=== PATIENT | male | born 1935 | race Caucasian/White ===

== ENCOUNTER → 2018-08-06 | Outpatient (CLI) | payer MEDICARE ==
[~2018-08-06] MED LIST: ASCRIPTIN1 TAB PO; COUMADIN6 MG PO; HYZAAR 50/12.5M1 TAB PO; SINGULAIR10 MG PO
== END ==
LOC: WOUNDCARE 00:50
DX: L97.821 Non-pressure chronic ulcer of other part of left lower leg limited to breakdown of skin (principal); G62.9 Polyneuropathy, unspecified; M19.90 Unspecified osteoarthritis, unspecified site; I10 Essential (primary) hypertension; I73.9 Peripheral vascular disease, unspecified; Z96.653 Presence of artificial knee joint, bilateral; Z95.810 Presence of automatic (implantable) cardiac defibrillator

== ENCOUNTER → 2018-08-15 | Outpatient (CLI) | payer MEDICARE | END | disposition home or self-care (01) | LOC: WOUNDCARE 01:29 | DX: S80.812D Abrasion, left lower leg, subsequent encounter (principal); I11.9 Hypertensive heart disease without heart failure; G62.9 Polyneuropathy, unspecified; M19.90 Unspecified osteoarthritis, unspecified site; Z96.653 Presence of artificial knee joint, bilateral; Z95.810 Presence of automatic (implantable) cardiac defibrillator; Z98.49 Cataract extraction status, unspecified eye; X58.XXXD Exposure to other specified factors, subsequent encounter ==

== ENCOUNTER → 2018-08-22 | Outpatient (CLI) | payer MEDICARE | END | disposition home or self-care (01) | LOC: WOUNDCARE 01:24 | DX: S80.812D Abrasion, left lower leg, subsequent encounter (principal); I10 Essential (primary) hypertension; M19.90 Unspecified osteoarthritis, unspecified site; G60.9 Hereditary and idiopathic neuropathy, unspecified; Z96.653 Presence of artificial knee joint, bilateral; Z98.49 Cataract extraction status, unspecified eye; X58.XXXD Exposure to other specified factors, subsequent encounter ==

== ENCOUNTER 2021-12-15 03:19 | Emergency (ER) | payer MEDICARE ==
[~2021-12-15] VITALS: Ht 185.4 cm; Wt 126.8 kg
[2021-12-15 03:39] LABS: BASO % 0.2 % (0.0-1.0); EOS % 0.1 % (1.0-4.0); HEMATOCRIT 33.9 % (42.0-52.0); LYMPH # 0.3 10*3/uL (1.3-4.4); LYMPH % 3.6 % (27.0-41.0); MEAN CELL VOLUME 101.8 fl (80.0-94.0); MEAN CORPUSCULAR HGB 34.5 pg (27.0-31.0); MEAN CORPUSCULAR HGB CONC 33.9 g/dl (33.0-37.0); MEAN PLATELET VOLUME 9.8 fl (9.6-12.3); MONO # 0.7 10*3/uL (0.1-1.0); MONO % 7.7 % (3.0-9.0); NEUT # 7.7 10*3/uL (2.3-7.9); NEUT % 87.9 % (47.0-73.0); PLATELET COUNT AUTOMATED 192 10*3/uL (130-400); RED BLOOD COUNT 3.33 10*6/uL (4.50-5.90); WHITE BLOOD COUNT 8.8 10*3/uL (4.8-10.8)
[2021-12-15 03:54] LABS: ALKALINE PHOSPHATASE 97 U/L (45-117); BUN 24 mg/dl (7-24); CHLORIDE 108 mmol/L (98-107); CPK 243 U/L (39-308); CREATININE 0.95 mg/dL (0.70-1.30); POTASSIUM 4.4 mmol/L (3.5-5.1); SGOT/AST 23 IU/L (3-35); SGPT/ALT 22 U/L (12-78); SODIUM 140 mmol/L (136-145); TOTAL PROTEIN 7.1 gm/dL (6.4-8.2)
[2021-12-15 06:02] LABS: BILIRUBIN 1+ (Negative); BLOOD Negative (Negative); CLARITY Clear (Clear); COLOR Dark Yellow (Yellow); GLUCOSE Negative (Negative); KETONE Trace (Negative); LEUKO ESTERASE Trace (Negative); NITRITE Negative (Negative); SPECIFIC GRAVITY >= 1.030 (1.001-1.030)
[2021-12-15 06:13] LABS: BACTERIA 1+; CALCIUM OXALATE CRYSTALS 2+; MUCOUS 1+
== END 2021-12-15 06:34 | disposition home or self-care (01) ==
LOC: ED 03:19
PROVIDERS: Internal Medicine
DX: T24.101A Burn of first degree of unspecified site of right lower limb, except ankle and foot, initial encounter (principal); R53.1 Weakness; Z79.899 Other long term (current) drug therapy; X08.8XXA Exposure to other specified smoke, fire and flames, initial encounter; Y93.89 Activity, other specified; Y92.89 Other specified places as the place of occurrence of the external cause; Y99.8 Other external cause status

== ENCOUNTER 2022-04-03 17:48 | Inpatient (IN) | payer MEDICARE ==
[~2022-04-03] VITALS: Ht 185.4 cm; Wt 122.1 kg
[2022-04-03 17:50] VITALS: BP 113/77
[2022-04-03 18:45] LABS: BASO % 0.1 % (0.0-1.0); HEMATOCRIT 36.6 % (42.0-52.0); LYMPH # 0.6 10*3/uL (1.3-4.4); LYMPH % 4.2 % (27.0-41.0); MEAN CORPUSCULAR HGB 34.7 pg (27.0-31.0); MEAN CORPUSCULAR HGB CONC 33.3 g/dl (33.0-37.0); MEAN PLATELET VOLUME 11.5 fl (9.6-12.3); MONO # 1.4 10*3/uL (0.1-1.0); MONO % 9.6 % (3.0-9.0); NEUT # 12.6 10*3/uL (2.3-7.9); NEUT % 85.6 % (47.0-73.0); PLATELET COUNT AUTOMATED 132 10*3/uL (130-400); RED BLOOD COUNT 3.52 10*6/uL (4.50-5.90); RED CELL DISTRI WIDTH 14.8 % (0-14.5); WHITE BLOOD COUNT 14.7 10*3/uL (4.8-10.8)
[2022-04-03 18:56] LABS: ACT PARTIAL THROMBO TIME 47.3 SECONDS (20.0-32.1); INTERNATIONAL NORM RATIO 1.7 (2.0-3.5)
[2022-04-03 19:00] LABS: ALKALINE PHOSPHATASE 74 U/L (46-116); BUN 29 mg/dl (9-23); CHLORIDE 104 mmol/L (98-107); POTASSIUM 4.5 mmol/L (3.4-5.1); SGPT/ALT 45 U/L (10-49); TOTAL PROTEIN 6.4 gm/dL (6.0-8.0)
[2022-04-03 19:43] VITALS: BP 102/72
[2022-04-03 21:24] LABS: MYOGLOBIN 2925.1 ng/ml (16-116)
[2022-04-03 21:27] LABS: BILIRUBIN 2+ (Negative); BLOOD Negative (Negative); CLARITY Clear (Clear); COLOR Orange (Yellow); GLUCOSE Negative (Negative); KETONE 1+ (Negative); LEUKO ESTERASE Trace (Negative); NITRITE Positive (Negative); PH 5.5 (4.5-8.0); SPECIFIC GRAVITY >= 1.030 (1.001-1.030)
[2022-04-03 22:06] LABS: BACTERIA 1+
[2022-04-03 23:37] VITALS: BP 99/54
[2022-04-04 01:29] VITALS: BP 117/66
[2022-04-04 02:50] VITALS: BP 134/74
[2022-04-04 03:30] LABS: BASO % 0.1 % (0.0-1.0); LYMPH # 0.9 10*3/uL (1.3-4.4); MEAN CELL VOLUME 103.2 fl (80.0-94.0); MEAN CORPUSCULAR HGB 34.4 pg (27.0-31.0); MEAN CORPUSCULAR HGB CONC 33.3 g/dl (33.0-37.0); MEAN PLATELET VOLUME 11.3 fl (9.6-12.3); MONO # 1.4 10*3/uL (0.1-1.0); MONO % 9.5 % (3.0-9.0); NEUT # 12.5 10*3/uL (2.3-7.9); PLATELET COUNT AUTOMATED 145 10*3/uL (130-400); RED BLOOD COUNT 3.49 10*6/uL (4.50-5.90); RED CELL DISTRI WIDTH 15.1 % (0-14.5); WHITE BLOOD COUNT 14.9 10*3/uL (4.8-10.8)
[2022-04-04 03:41] LABS: ACT PARTIAL THROMBO TIME 46.3 SECONDS (20.0-32.1); INTERNATIONAL NORM RATIO 1.6 (2.0-3.5)
[2022-04-04 03:47] LABS: ALKALINE PHOSPHATASE 70 U/L (46-116); BUN 29 mg/dl (9-23); CHLORIDE 105 mmol/L (98-107); CHOLESTEROL 95 mg/dL (<200); LDL CHOLESTEROL 42 mg/dL (9-159); POTASSIUM 4.3 mmol/L (3.4-5.1); SGPT/ALT 46 U/L (10-49); THYROID STIM HORMONE (HS) 3.016 uIU/ml (0.550-4.780); TRIGLYCERIDES 69 mg/dl (<150)
[2022-04-04 06:58] LABS: VITAMIN D, 25-HYDROXY 49.5 ng/mL (30-100)
[2022-04-04 07:40] VITALS: BP 116/72
[2022-04-04] MEDS ORDERED: EPLERENONE25 MG PO (08:58)
[2022-04-04] MEDS ORDERED: ELIQUIS5 M1 PO (09:03)
[2022-04-04] MEDS ORDERED: HYDROXYCHLOROQ200 M1 PO (09:04)
[2022-04-04] MEDS ORDERED: SANTYL30 GM T (09:06)
[2022-04-04] MEDS ORDERED: TOLTERODINE TART4 M1 PO (09:07)
[2022-04-04] MEDS ORDERED: NATURE'S BLEND F1 MG PO (09:07)
[2022-04-04] MEDS ORDERED: MONTELUKAST SOD10 MG PO (09:08)
[2022-04-04] MEDS ORDERED: DIGOXIN125 MCG PO (09:09)
[2022-04-04] MEDS ORDERED: CARVEDILOL6.25 MG PO (10:52)
[2022-04-04] MEDS ORDERED: NEURONTIN300 MG PO (10:55)
[2022-04-04 12:00] VITALS: BP 112/67
[2022-04-04 16:00] VITALS: BP 122/85
[2022-04-04 20:00] VITALS: BP 118/72
[2022-04-05] VITALS: BP 131/76
[2022-04-05 05:06] LABS: HBSAG Negative (Negative); HEP B CORE AB, IGM Negative (Negative); HEPATITIS C ANTIBODY <0.1 (0.0-0.9)
[2022-04-05 07:34] LABS: ALKALINE PHOSPHATASE 67 U/L (46-116); CHLORIDE 108 mmol/L (98-107); POTASSIUM 4.1 mmol/L (3.4-5.1); SGPT/ALT 52 U/L (10-49); TOTAL PROTEIN 5.9 gm/dL (6.0-8.0)
[2022-04-05 07:46] LABS: BUN 18 mg/dl (9-23)
[2022-04-05 08:00] VITALS: BP 102/74; BP 116/70
[2022-04-05 08:52] LABS: BASO % 0.1 % (0.0-1.0); EOS # 0.1 10*3/uL (0.0-0.4); EOS % 0.5 % (1.0-4.0); HEMATOCRIT 36.2 % (42.0-52.0); LYMPH # 0.8 10*3/uL (1.3-4.4); MEAN CELL VOLUME 104.3 fl (80.0-94.0); MEAN CORPUSCULAR HGB 34.6 pg (27.0-31.0); MEAN CORPUSCULAR HGB CONC 33.1 g/dl (33.0-37.0); MONO # 1.1 10*3/uL (0.1-1.0); MONO % 12.2 % (3.0-9.0); NEUT # 7.2 10*3/uL (2.3-7.9); PLATELET COUNT AUTOMATED 140 10*3/uL (130-400); RED BLOOD COUNT 3.47 10*6/uL (4.50-5.90); RED CELL DISTRI WIDTH 15.1 % (0-14.5); WHITE BLOOD COUNT 9.2 10*3/uL (4.8-10.8)
[2022-04-05 12:00] VITALS: BP 112/66
[2022-04-05 16:00] VITALS: BP 110/55
[2022-04-05 20:00] VITALS: BP 121/80
[2022-04-06] VITALS: BP 128/79
[2022-04-06 08:00] VITALS: BP 136/77
[2022-04-06 12:00] VITALS: BP 107/68
[2022-04-06] MEDS ORDERED: CEPHALEXIN500 M1 PO (14:41)
[2022-04-06 16:00] VITALS: BP 119/67
[2022-04-06 20:00] VITALS: BP 120/82
[2022-04-07] VITALS: BP 113/75
[2022-04-07 08:00] VITALS: BP 114/85
[2022-04-07 12:00] VITALS: BP 117/71
[2022-04-07 16:00] VITALS: BP 114/83
[2022-04-07 20:00] VITALS: BP 125/88
[2022-04-08] VITALS: BP 125/82
[2022-04-08 06:44] LABS: BASO % 0.2 % (0.0-1.0); EOS # 0.1 10*3/uL (0.0-0.4); EOS % 2.4 % (1.0-4.0); HEMATOCRIT 32.7 % (42.0-52.0); LYMPH # 0.8 10*3/uL (1.3-4.4); LYMPH % 15.2 % (27.0-41.0); MEAN CELL VOLUME 104.5 fl (80.0-94.0); MEAN CORPUSCULAR HGB 34.8 pg (27.0-31.0); MEAN CORPUSCULAR HGB CONC 33.3 g/dl (33.0-37.0); MEAN PLATELET VOLUME 10.8 fl (9.6-12.3); MONO # 0.7 10*3/uL (0.1-1.0); MONO % 12.4 % (3.0-9.0); NEUT # 3.8 10*3/uL (2.3-7.9); NEUT % 69.6 % (47.0-73.0); PLATELET COUNT AUTOMATED 130 10*3/uL (130-400); RED BLOOD COUNT 3.13 10*6/uL (4.50-5.90); RED CELL DISTRI WIDTH 15.4 % (0-14.5); WHITE BLOOD COUNT 5.5 10*3/uL (4.8-10.8)
[2022-04-08 08:00] VITALS: BP 133/80
[2022-04-08 09:23] LABS: ALKALINE PHOSPHATASE 57 U/L (46-116); BUN 13 mg/dl (9-23); CHLORIDE 108 mmol/L (98-107); SGPT/ALT 39 U/L (10-49); TOTAL PROTEIN 5.5 gm/dL (6.0-8.0)
[2022-04-08 12:00] VITALS: BP 133/70
[2022-04-08] MEDS ORDERED: METHOTREXATE S2.5 M1 PO (13:36)
[2022-04-08 16:00] VITALS: BP 136/72
[2022-04-08 20:00] VITALS: BP 120/82
[2022-04-09] VITALS: BP 121/80
[2022-04-09 07:58] VITALS: BP 124/78
[2022-04-09 12:00] VITALS: BP 121/71
[2022-04-09 16:00] VITALS: BP 126/71
[2022-04-09 20:00] VITALS: BP 119/72
[2022-04-10] VITALS: BP 119/78
[2022-04-10 06:34] LABS: BASO % 0.3 % (0.0-1.0); EOS # 0.1 10*3/uL (0.0-0.4); EOS % 2.1 % (1.0-4.0); HEMATOCRIT 34.6 % (42.0-52.0); LYMPH # 0.9 10*3/uL (1.3-4.4); MEAN CELL VOLUME 104.5 fl (80.0-94.0); MEAN CORPUSCULAR HGB 34.7 pg (27.0-31.0); MEAN CORPUSCULAR HGB CONC 33.2 g/dl (33.0-37.0); MEAN PLATELET VOLUME 10.7 fl (9.6-12.3); MONO # 0.7 10*3/uL (0.1-1.0); MONO % 11.9 % (3.0-9.0); NEUT # 4.3 10*3/uL (2.3-7.9); NEUT % 70.2 % (47.0-73.0); PLATELET COUNT AUTOMATED 129 10*3/uL (130-400); RED BLOOD COUNT 3.31 10*6/uL (4.50-5.90); RED CELL DISTRI WIDTH 15.3 % (0-14.5); WHITE BLOOD COUNT 6.1 10*3/uL (4.8-10.8)
[2022-04-10 06:55] LABS: BUN 11 mg/dl (9-23); CHLORIDE 105 mmol/L (98-107); POTASSIUM 4.1 mmol/L (3.4-5.1)
[2022-04-10 08:45] VITALS: BP 121/84
[2022-04-10 12:17] VITALS: BP 113/73
== END 2022-04-10 15:31 | DRG 871 ==
LOC: ED 17:48 → 5E 04-04 01:43 → EDHOLD 04-04 01:43 → 5E 04-04 02:09
PROVIDERS: Emergency Medicine; Student in an Organized Health Care Education/Training Program; ADMIT Internal Medicine; ATTEND Internal Medicine
DX: A41.9 Sepsis, unspecified organism (principal); G93.41 Metabolic encephalopathy; I21.4 Non-ST elevation (NSTEMI) myocardial infarction; M62.82 Rhabdomyolysis; E87.20 Acidosis, unspecified; L03.90 Cellulitis, unspecified; I48.21 Permanent atrial fibrillation; S05.8X2A Other injuries of left eye and orbit, initial encounter; N39.0 Urinary tract infection, site not specified; R65.20 Severe sepsis without septic shock; E80.6 Other disorders of bilirubin metabolism; G62.9 Polyneuropathy, unspecified; M81.0 Age-related osteoporosis without current pathological fracture; I50.9 Heart failure, unspecified; R29.6 Repeated falls; I45.10 Unspecified right bundle-branch block; I44.60 Unspecified fascicular block; I08.1 Rheumatic disorders of both mitral and tricuspid valves; I11.0 Hypertensive heart disease with heart failure; R74.01 Elevation of levels of liver transaminase levels; D53.9 Nutritional anemia, unspecified; R73.9 Hyperglycemia, unspecified; G47.30 Sleep apnea, unspecified; G57.93 Unspecified mononeuropathy of bilateral lower limbs; M06.9 Rheumatoid arthritis, unspecified; Z96.653 Presence of artificial knee joint, bilateral; S81.819A Laceration without foreign body, unspecified lower leg, initial encounter; X58.XXXA Exposure to other specified factors, initial encounter; Z86.73 Personal history of transient ischemic attack (TIA), and cerebral infarction without residual deficits; Y93.89 Activity, other specified; Y92.89 Other specified places as the place of occurrence of the external cause; Z90.49 Acquired absence of other specified parts of digestive tract; Y99.8 Other external cause status; Z82.49 Family history of ischemic heart disease and other diseases of the circulatory system; Z88.6 Allergy status to analgesic agent; Z79.01 Long term (current) use of anticoagulants; Z79.899 Other long term (current) drug therapy

== ENCOUNTER 2022-06-16 21:23 | Emergency (ER) | payer MEDICARE ==
[~2022-06-16 21:23] MED LIST changes: +CARVEDILOL6.25 MG PO; +CEFDINIR300 MG PO; +CEPHALEXIN500 M1 PO; +DIGOXIN125 MCG PO; +DOXYCYCLINE MO100 MG PO; +ELIQUIS5 M1 PO; +EPLERENONE25 MG PO; +GABAPENTIN600 MG PO; +HYDROCODONE-AC1 EAC1 PO; +HYDROCODONE-AC1 EACH PO; +HYDROXYCHLOROQ200 M1 PO; +LASIX40 MG PO; +LIDOCAINE PAIN1 EACH T; +METHOTREXATE S2.5 M1 PO; +MONTELUKAST SOD10 MG PO; +NATURE'S BLEND F1 MG PO; +NEURONTIN300 MG PO; +NEURONTIN600 MG PO; +PANTOPRAZOLE SO40 MG PO; +PROTONIX40 MG PO; +SANTYL30 GM T; +TOLTERODINE TART4 M1 PO; +TREXALL15 MG PO; +XARE15TA PO
[2022-06-16] MEDS ORDERED: BUMETANIDE1 MG PO (21:31)
[2022-06-16] MEDS ORDERED: Vibra-Tab100 MG PO (21:32)
[2022-06-16] MEDS ORDERED: POTASSIUM CHLO20 ME3 PO (21:33)
[2022-06-16 22:04] LABS: BILIRUBIN Negative (Negative); BLOOD Negative (Negative); CLARITY Clear (Clear); COLOR Yellow (Yellow); GLUCOSE Negative (Negative); KETONE Negative (Negative); LEUKO ESTERASE Negative (Negative); NITRITE Negative (Negative); SPECIFIC GRAVITY 1.015 (1.001-1.030)
[2022-06-16 22:12] LABS: BACTERIA TRACE
[2022-06-16 22:13] LABS: BASO % 0.1 % (0.0-1.0); HEMATOCRIT 25.1 % (42.0-52.0); LYMPH # 0.5 10*3/uL (1.3-4.4); LYMPH % 4.1 % (27.0-41.0); MEAN CELL VOLUME 89.3 fl (80.0-94.0); MEAN CORPUSCULAR HGB 29.2 pg (27.0-31.0); MEAN CORPUSCULAR HGB CONC 32.7 g/dl (33.0-37.0); MEAN PLATELET VOLUME 10.9 fl (9.6-12.3); MONO # 0.8 10*3/uL (0.1-1.0); MONO % 7.5 % (3.0-9.0); NEUT # 9.8 10*3/uL (2.3-7.9); NEUT % 87.7 % (47.0-73.0); PLATELET COUNT AUTOMATED 194 10*3/uL (130-400); RED BLOOD COUNT 2.81 10*6/uL (4.50-5.90); RED CELL DISTRI WIDTH 17.2 % (0-14.5); WHITE BLOOD COUNT 11.1 10*3/uL (4.8-10.8)
[2022-06-16 22:27] LABS: ALKALINE PHOSPHATASE 104 U/L (46-116); BUN 20 mg/dl (9-23); CHLORIDE 99 mmol/L (98-107); SGPT/ALT 12 U/L (10-49); TOTAL PROTEIN 5.1 gm/dL (6.0-8.0)
== END 2022-06-17 00:46 ==
LOC: ED 21:23
PROVIDERS: Internal Medicine
DX: B34.9 Viral infection, unspecified (principal); R79.82 Elevated C-reactive protein (CRP); M25.511 Pain in right shoulder; E87.1 Hypo-osmolality and hyponatremia; D64.9 Anemia, unspecified; E43 Unspecified severe protein-calorie malnutrition; Z68.1 Body mass index [BMI] 19.9 or less, adult; I10 Essential (primary) hypertension; I50.9 Heart failure, unspecified; M19.90 Unspecified osteoarthritis, unspecified site; G62.9 Polyneuropathy, unspecified; Z88.6 Allergy status to analgesic agent; Z90.49 Acquired absence of other specified parts of digestive tract; Z96.653 Presence of artificial knee joint, bilateral; Z20.822 Contact with and (suspected) exposure to COVID-19

== ENCOUNTER 2022-12-01 11:09 | Emergency (ER) | payer MEDICARE ==
[~2022-12-01] VITALS: Ht 185.4 cm; Wt 133.4 kg
[~2022-12-01 11:09] MED LIST changes: +ACETAMINOPHEN325 M2 PO; +BUMETANIDE1 MG PO; +POTASSIUM CHLO20 ME3 PO; +TORSEMIDE20 MG PO; +TRAMADOL HCL50 MG PO; +VANC1PIG IV; +Vibra-Tab100 MG PO; +XARE20MG PO
[2022-12-01 11:41] LABS: BASO % 0.8 % (0.0-1.0); EOS # 0.2 10*3/uL (0.0-0.4); EOS % 3.2 % (1.0-4.0); HEMATOCRIT 26.6 % (42.0-52.0); LYMPH # 0.9 10*3/uL (1.3-4.4); LYMPH % 19.1 % (27.0-41.0); MEAN CORPUSCULAR HGB CONC 32.3 g/dl (33.0-37.0); MEAN PLATELET VOLUME 9.7 fl (9.6-12.3); MONO # 0.7 10*3/uL (0.1-1.0); MONO % 15.5 % (3.0-9.0); NEUT # 2.9 10*3/uL (2.3-7.9); NEUT % 61.2 % (47.0-73.0); PLATELET COUNT AUTOMATED 156 10*3/uL (130-400); RED BLOOD COUNT 2.77 10*6/uL (4.50-5.90); RED CELL DISTRI WIDTH 17.9 % (0-14.5); WHITE BLOOD COUNT 4.8 10*3/uL (4.8-10.8)
[2022-12-01 11:53] LABS: ACT PARTIAL THROMBO TIME 39.7 SECONDS (20.0-32.1); INTERNATIONAL NORM RATIO 1.4 (2.0-3.5)
[2022-12-01 12:30] LABS: ALKALINE PHOSPHATASE 82 U/L (46-116); BUN 17 mg/dl (9-23); CHLORIDE 104 mmol/L (98-107); TOTAL PROTEIN 6.2 gm/dL (6.0-8.0)
[2022-12-01 12:31] LABS: SGPT/ALT < 7 U/L (10-49)
[2022-12-01] MEDS ORDERED: LASIX80 MG PO (13:17)
== END 2022-12-01 14:07 | disposition home or self-care (01) ==
LOC: ED 11:09
PROVIDERS: Emergency Medicine
DX: I50.9 Heart failure, unspecified (principal); N43.3 Hydrocele, unspecified; N50.89 Other specified disorders of the male genital organs; I11.0 Hypertensive heart disease with heart failure; M19.90 Unspecified osteoarthritis, unspecified site; Z88.6 Allergy status to analgesic agent; Z88.8 Allergy status to other drugs, medicaments and biological substances; Z90.49 Acquired absence of other specified parts of digestive tract; Z96.653 Presence of artificial knee joint, bilateral

== ENCOUNTER 2022-12-07 21:36 | Emergency (ER) | payer MEDICARE ==
[~2022-12-07] VITALS: Ht 177.8 cm; Wt 132.0 kg
[~2022-12-07 21:36] MED LIST changes: +LASIX80 MG PO
[2022-12-07 22:03] LABS: BASO % 0.6 % (0.0-1.0); EOS # 0.1 10*3/uL (0.0-0.4); EOS % 2.4 % (1.0-4.0); HEMATOCRIT 27.4 % (42.0-52.0); LYMPH # 0.9 10*3/uL (1.3-4.4); LYMPH % 18.3 % (27.0-41.0); MEAN CELL VOLUME 92.6 fl (80.0-94.0); MEAN CORPUSCULAR HGB 29.7 pg (27.0-31.0); MEAN CORPUSCULAR HGB CONC 32.1 g/dl (33.0-37.0); MEAN PLATELET VOLUME 10.1 fl (9.6-12.3); MONO # 0.7 10*3/uL (0.1-1.0); MONO % 13.5 % (3.0-9.0); NEUT # 3.2 10*3/uL (2.3-7.9); NEUT % 63.8 % (47.0-73.0); PLATELET COUNT AUTOMATED 165 10*3/uL (130-400); RED BLOOD COUNT 2.96 10*6/uL (4.50-5.90); RED CELL DISTRI WIDTH 17.1 % (0-14.5)
[2022-12-07 22:23] LABS: ALKALINE PHOSPHATASE 82 U/L (46-116); BUN 18 mg/dl (9-23); CHLORIDE 103 mmol/L (98-107); POTASSIUM 3.7 mmol/L (3.4-5.1); TOTAL PROTEIN 6.3 gm/dL (6.0-8.0)
[2022-12-07 22:25] LABS: SGPT/ALT < 7 U/L (10-49)
[2022-12-07 23:41] LABS: BILIRUBIN Negative (Negative); BLOOD 3+ (Negative); CLARITY Clear (Clear); COLOR Yellow (Yellow); GLUCOSE Negative (Negative); KETONE Negative (Negative); LEUKO ESTERASE 1+ (Negative); NITRITE Negative (Negative); PH 5.5 (4.5-8.0)
[2022-12-07 23:51] LABS: BACTERIA TRACE; RBC 41-50 rbc/hpf (0-2); WBC 16-20 wbc/hpf (0-5)
== END 2022-12-08 02:07 ==
LOC: ED 21:36
PROVIDERS: Internal Medicine
DX: N50.89 Other specified disorders of the male genital organs (principal); D64.9 Anemia, unspecified; E43 Unspecified severe protein-calorie malnutrition; I10 Essential (primary) hypertension; I50.9 Heart failure, unspecified; M19.90 Unspecified osteoarthritis, unspecified site; Z68.1 Body mass index [BMI] 19.9 or less, adult; N43.3 Hydrocele, unspecified; Z88.6 Allergy status to analgesic agent; Z88.8 Allergy status to other drugs, medicaments and biological substances; Z96.653 Presence of artificial knee joint, bilateral; Z90.49 Acquired absence of other specified parts of digestive tract